=== PATIENT | female | born 1980 | race American Indian/Alaskan Native ===

== ENCOUNTER 2016-12-09 13:29 | Emergency (ER) | payer BC, OTHER ==
[2016-12-09] MEDS ORDERED: MORPHINE IM ONE (14:08)
[2016-12-09] MEDS ORDERED: ZOFRAN ODT PO ONE (14:08)
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
[2016-12-09 15:37] VITALS: BP 148/89
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
== END 2016-12-09 15:35 | disposition home or self-care (01) ==
LOC: ED 13:29
DX: S39.012A Strain of muscle, fascia and tendon of lower back, initial encounter (principal); I10 Essential (primary) hypertension; R56.9 Unspecified convulsions; Z90.89 Acquired absence of other organs; Z88.0 Allergy status to penicillin; V89.2XXA Person injured in unspecified motor-vehicle accident, traffic, initial encounter; Y93.89 Activity, other specified; Y99.8 Other external cause status; Y92.89 Other specified places as the place of occurrence of the external cause
CPT/HCPCS: 72100; 96372; 99284; J2270; Q0162